=== PATIENT | male | born 1945 | race Caucasian/White ===

== ENCOUNTER → 2017-12-24 | Outpatient (CLI) | payer MEDICARE, MEDICAID ==
[~2017-12-24] MED LIST: ASP325T PO; ATEN25TA PO; CATHETER FLUSH 10 ML SYR IV PRN; CETI10TA17 PO; FLT05NA16 NSEACH; GARL400T13 PO; GARLIC 1000MG PO; IBP800T PO; IBUP-30 PO; LISI10TA PO; LSNP10T PO; MECL12.579 PO; MONT10TA21 PO; MULT-358 PO; MULT-963 PO; NF-ESOM40C PO; NF-TYLARTH PO; NITR0.3T6 SL; NTR.4SL SL; OMEG1CAP74 PO; OMG1KC PO; SIMV40TA2 PO; SIMV40TA4 PO
[2017-12-24 09:14] VITALS: BP 124/66
--- NOTE | 2017-12-24 21:41 | STRESS TEST ---
DATE OF SERVICE: 12/24/2017 EXERCISE MYOVIEW STRESS TEST REPORT REFERRING PHYSICIAN: Dr. Zion Abdullahi. Baseline heart rate is 78. Baseline blood pressure 124/66. Baseline EKG is sinus rhythm with nonspecific abnormality. In summary, the patient was injected with 10.65 mCi of technetium-99 Myoview and the resting images were obtained. Then, the patient started exercising with a baseline heart rate, blood pressure and EKG mentioned above. He was able to exercise for a total of 5 minutes 40 seconds on standard Unruly protocol, achieving 89% of maximum expected heart rate. With peak exercise level, blood pressure was 173/76. During recovery, heart rate and blood pressure returned to baseline. EKG returned to baseline. The resting and stress images were reviewed and compared in the short axis, horizontal long axis, and vertical long axis views. Review of the images showed decreased uptake involving the anterior wall and anterior lateral wall, which appeared to be fixed subtle reversibility was noted. SSS is 7, SDS is 1, TID value 1.04. On the gated images, the left ventricle appeared to be normal size with mild hypokinesia at the anterior wall. Calculated ejection fraction 57%. CONCLUSION: 1. Fair exercise tolerance, a total of 5 minutes 40 seconds on standard Unruly protocol, achieving 89% of maximum expected heart rate. 2. Nondiagnostic EKG changes with exercise returned to baseline during recovery. 3. Fixed defect at the mid to apical anterior wall with mild reversibility. 4. Normal left ventricular size with mild hypokinesia of the anterior wall. Calculated ejection fraction 57%. Job ID: [id number] DocumentID: [id number] Dictated Date: 12/24/2017 16:04:12 Deck Worker Date: 12/24/2017 21:40:07 Dictated By: DAVID BLANKENSHIP MD
== END ==
LOC: CARD 07:37
PROVIDERS: ATTEND Internal Medicine Cardiovascular Disease
DX: I25.10 Atherosclerotic heart disease of native coronary artery without angina pectoris (principal); I65.29 Occlusion and stenosis of unspecified carotid artery; I10 Essential (primary) hypertension; E78.5 Hyperlipidemia, unspecified; I21.3 ST elevation (STEMI) myocardial infarction of unspecified site
CPT/HCPCS: 78452; 93017